=== PATIENT | male | born 1945 | race African-American/Black ===

== ENCOUNTER 2020-07-29 08:08 | Emergency (ER) | payer OTHER, MEDICAID ==
[~2020-07-29] VITALS: Ht 167.6 cm; Wt 70.0 kg
[~2020-07-29 08:08] MED LIST: AMLO10TA80 PO; FERR324T11 PO; IBUP-2028 PO; METF-414 PO; TAMS0.4C31 PO
[2020-07-29] MEDS ORDERED: AMLODIPINE 10MG TABLET PO ONE (08:45)
[2020-07-29] MEDS ORDERED: IBUPROFEN 600MG TABLET PO ONE (08:45)
[2020-07-29] MEDS ORDERED: IBUP-2028 MT (10:58)
[2020-07-29 11:20] VITALS: BP 162/96
== END 2020-07-29 11:21 | disposition home or self-care (01) ==
LOC: ER 08:24
DX: M25.551 Pain in right hip (principal); M79.601 Pain in right arm; I10 Essential (primary) hypertension; E11.9 Type 2 diabetes mellitus without complications
CPT/HCPCS: 73030; 73502; 93005; 93971; 99285

== ENCOUNTER 2025-02-16 15:29 | Emergency (ER) | payer MEDICAID, MEDICARE ==
[~2025-02-16] VITALS: Ht 182.9 cm; Wt 82.0 kg
[~2025-02-16 15:29] MED LIST changes: +IBUP-2028 MT
[2025-02-16 15:31] VITALS: TEMP 36.8; O2SAT 100
[2025-02-16] MEDS ORDERED: LIDO-53 TP (17:57)
[2025-02-16] MEDS: KETOROLAC 30MG/ML VIAL IM ONE (18:05)
[2025-02-16 19:23] VITALS: BP 142/78; PULSE 92; RESP 16; O2SAT 100
== END 2025-02-16 20:19 | disposition home or self-care (01) ==
LOC: ER 15:29
DX: M25.552 Pain in left hip (principal); E11.9 Type 2 diabetes mellitus without complications; I10 Essential (primary) hypertension
CPT/HCPCS: 99283; 73502; 96372; J1885